=== PATIENT | female | born 1965 | race Caucasian/White ===

== ENCOUNTER 2020-11-05 10:17 | Emergency (ER) | payer OTHER ==
[~2020-11-05] VITALS: Ht 162.6 cm; Wt 74.8 kg
[2020-11-05] MEDS ORDERED: ACETAMINOPHEN 325 MG TAB PO ONE (11:15)
[2020-11-05] MEDS ORDERED: IBUPROFEN 200 MG TAB PO ONE (11:15)
[2020-11-05] MEDS ORDERED: ACETAMINOPHEN500 MG PO (11:15)
[2020-11-05] MEDS ORDERED: ONDANSETRON HCL 4 MG ORAL DISINTEGRATING TAB PO ONE (11:15)
[2020-11-05] MEDS ORDERED: IBUPROFEN IB200 MG PO (11:15)
[2020-11-05] MEDS ORDERED: IBUPROFEN 600 MG TAB ONE (11:18)
[2020-11-05] MEDS ORDERED: IBUPROFEN 600 MG TAB PO ONE (11:30)
[2020-11-05] MEDS ORDERED: ULTRAM 50MG50 MG PO (12:18)
== END 2020-11-05 12:26 | disposition home or self-care (01) ==
LOC: FSED 11:02
DX: S16.1XXA Strain of muscle, fascia and tendon at neck level, initial encounter (principal); V53.5XXA Driver of pick-up truck or van injured in collision with car, pick-up truck or van in traffic accident, initial encounter; Y92.488 Other paved roadways as the place of occurrence of the external cause; F41.9 Anxiety disorder, unspecified; F17.210 Nicotine dependence, cigarettes, uncomplicated
CPT/HCPCS: 71046; 72125; 99284; Q0162

== ENCOUNTER 2022-06-29 12:21 | Emergency (ER) | payer OTHER ==
[~2022-06-29] VITALS: Ht 162.6 cm; Wt 74.8 kg
[~2022-06-29 12:21] MED LIST: ACETAMINOPHEN500 MG PO; IBUPROFEN IB200 MG PO; ULTRAM 50MG50 MG PO
[2022-06-29] MEDS ORDERED: DEXAMETHASONE SOD PHOS 10 MG/1 ML VIAL IV STA (12:31)
[2022-06-29] MEDS ORDERED: ALBUTEROL SULF 0.083% NEB SOLN 3 ML NEB NEB STA (12:31)
[2022-06-29] MEDS ORDERED: IPRATROPIUM BROMIDE 0.02% 2.5 ML NEB NEB ONE (12:45)
[2022-06-29] MEDS ORDERED: DOXYCYCLINE HYCLATE TABLET 100 MG TAB PO ONE (12:45)
[2022-06-29 12:56] LABS: BASOPHILS % 0.5 % (0.0-1.0); EOSINOPHILS % 0.1 % (0.0-6.0); HEMATOCRIT 37.5 % (34.2-44.1); HEMOGLOBIN 12.2 g/dL (12.0-16.0); LYMPHOCYTES # (AUTO) 2.2 (1.0-3.2); LYMPHOCYTES % 25.6 % (18.0-39.1); MEAN CORPUSCULAR HEMOGLOBIN 31.5 pg (28-32); MEAN CORPUSCULAR HGB CONC 32.5 g/dL (31-35); MEAN CORPUSCULAR VOLUME 96.9 fL (81-99); MONOCYTES # (AUTO) 0.7 (0.2-0.8); MONOCYTES % 7.5 % (4.4-11.3); NEUTROPHILS # (AUTO) 5.7 (2.1-6.9); PLATELET COUNT 256 x10e3/uL (140-360); RED BLOOD COUNT 3.87 x10e6/uL (3.6-5.1); RED CELL DISTRIBUTION WIDTH 13.3 % (11.7-14.4)
[2022-06-29 13:24] LABS: ANION GAP 14.3 mmol/L (8-16); CALCIUM 8.9 mg/dL (8.4-10.2); CREATININE, SERUM 0.65 mg/dL (0.57-1.11); POTASSIUM 3.3 mmol/L (3.5-5.1)
[2022-06-29] MEDS ORDERED: DOXYCYCLINE HY100 MG PO (14:27)
[2022-06-29 15:51] LABS: ALBUMIN 3.5 g/dL (3.5-5.0); ALBUMIN/GLOBULIN RATIO 1.1 (0.8-2.0)
== END 2022-06-29 14:34 | disposition home or self-care (01) ==
LOC: ER 12:24
DX: R06.02 Shortness of breath (principal); J06.9 Acute upper respiratory infection, unspecified; J44.9 Chronic obstructive pulmonary disease, unspecified; R05.9 Cough, unspecified; Z20.822 Contact with and (suspected) exposure to COVID-19; F17.210 Nicotine dependence, cigarettes, uncomplicated
CPT/HCPCS: 36415; 71045; 80053; 83880; 85025; 99284; J1100; U0002

== ENCOUNTER 2025-02-28 13:34 | Emergency (ER) | payer OTHER ==
[~2025-02-28] VITALS: Ht 162.6 cm; Wt 74.8 kg
[~2025-02-28 13:34] MED LIST changes: +DOXYCYCLINE HY100 MG PO
[2025-02-28 15:10] LABS: BASOPHILS % 1.0 % (0.0-1.0); EOSINOPHILS % 1.1 % (0.0-6.0); LYMPHOCYTES % 39.5 % (18.0-39.1); MONOCYTES % 5.1 % (4.4-11.3); NEUTROPHILS % 53.1 % (38.7-80.0); RED CELL DISTRIBUTION WIDTH 13.8 % (11.7-14.4)
[2025-02-28 15:25] LABS: INR 0.81
[2025-02-28 15:33] LABS: EST GLOMERULAR FILTRATION RATE 94.0 ML/MIN (>=60)
[2025-02-28] MEDS: SODIUM CHLORIDE 0.9% 1000ML 1,000 ML IV STA (16:29)
[2025-02-28 18:38] VITALS: PULSE 69; RESP 17; TEMP 97.5; O2SAT 98
== END 2025-02-28 18:38 | disposition home or self-care (01) ==
LOC: ER 14:45
DX: S00.83XA Contusion of other part of head, initial encounter (principal); R42 Dizziness and giddiness; W01.198A Fall on same level from slipping, tripping and stumbling with subsequent striking against other object, initial encounter; Y93.01 Activity, walking, marching and hiking; Y92.89 Other specified places as the place of occurrence of the external cause; J44.9 Chronic obstructive pulmonary disease, unspecified; E78.5 Hyperlipidemia, unspecified; F41.9 Anxiety disorder, unspecified; Z87.19 Personal history of other diseases of the digestive system
CPT/HCPCS: 36415; 70450; 71045; 80053; 84484; 85025; 85610; 85730; 93005; 99284; J7030

== ENCOUNTER 2025-04-19 11:05 | Emergency (ER) | payer OTHER ==
[~2025-04-19] VITALS: Ht 162.6 cm; Wt 74.8 kg
[2025-04-19 11:08] VITALS: PULSE 89; RESP 17; TEMP 98.4; O2SAT 97
[2025-04-19] MEDS ORDERED: SODIUM CHLORIDE 0.9% 1000ML 1,000 ML IV STA (11:10)
[2025-04-19] MEDS ORDERED: ONDANSETRON HCL INJ 2MG/ML 2ML 2 MG/ML VIAL IV PRN (11:15)
[2025-04-19 12:31] LABS: BASOPHILS % 0.5 % (0.0-1.0); EOSINOPHILS % 0.5 % (0.0-6.0); LYMPHOCYTES % 15.3 % (18.0-39.1); MONOCYTES % 10.4 % (4.4-11.3); NEUTROPHILS % 73.0 % (38.7-80.0); RED CELL DISTRIBUTION WIDTH 13.4 % (11.7-14.4)
[2025-04-19 13:11] LABS: EST GLOMERULAR FILTRATION RATE 103.0 ML/MIN (>=60)
== END 2025-04-19 15:02 | disposition home or self-care (01) ==
LOC: ER 11:10
DX: R11.2 Nausea with vomiting, unspecified (principal); R19.7 Diarrhea, unspecified; J44.9 Chronic obstructive pulmonary disease, unspecified; E78.5 Hyperlipidemia, unspecified; K21.9 Gastro-esophageal reflux disease without esophagitis; F41.9 Anxiety disorder, unspecified; Z87.19 Personal history of other diseases of the digestive system
CPT/HCPCS: 36415; 80053; 83690; 85025; 99284; J2405; J7030